=== PATIENT | male | born 1965 | race Hispanic/Latino ===

== ENCOUNTER 2020-06-17 17:20 | Emergency (ER) | payer OTHER ==
[2020-06-17 18:39] LABS: Absolute Lymphocytes (CBC) 0.8 K/uL (0.7-4.9); Basophils % 0.2 % (0-1.3); Hematocrit 35.3 % (39.6-49.0); Lymphocytes % 3.2 % (15.3-44.8); RBC Red Blood Cell Count 3.99 M/uL (4.33-5.43)
[2020-06-17 18:40] LABS: Protime INR 1.43
--- NOTE | 2020-06-17 18:56 | RAD REPORT ---
EXAM DESCRIPTION: RAD - Chest Single View - 06/17/2020 6:43 pm CLINICAL HISTORY: ABDOMINAL DISTENTION Chest pain. COMPARISON: Chest Single View dated 11/29/2017; Chest Single View dated 09/09/2017; Chest Single View dated 03/07/2017; Chest Single View dated 01/19/2017 FINDINGS: Portable technique limits examination quality. Mild to moderate bilateral pulmonary opacities are noted which may represent pneumonia or pulmonary e abraham. The heart is normal in size. No displaced fractures.
[2020-06-17 18:59] LABS: Blood Morphology Comment NOT SEEN (NOT SEEN); Platelet Estimate DECR; White Blood Cell Scan OK (OK)
[2020-06-17] MEDS ORDERED: NA CHLORIDE 0.9% 1,000 ML ONE (19:04)
[2020-06-17] MEDS ORDERED: NA CHLORIDE 0.9% 500 ML ONE (19:05)
--- NOTE | 2020-06-17 19:11 | ER ---
Nurse's Notes [facility] Name: Carson Hoff Age: 55 yrs Sex: Male : 1965 Arrival Date: 06/17/2020 Time: 17:20 Bed 15 Private MD: Diagnosis: Altered mental status, unspecified;Sepsis, unspecified organism;Unspecified cirrhosis of liver;Encephalopathy, unspecified-hepatic encepholapathy;Pneumonia due to other specified bacteria;Acute pancreatitis;Ascites-large liver mass7 cm x 7 cm;Cholelithiasis;Cholecystitis;Acute kidney failure;Hypokalemia Presentation: 06/17 17:21 Chief complaint: Patient states: Pain all over x 4 months. Ebola Screen: Patient denies ss exposure to infectious person. Patient denies travel to an Ebola-affected area in the 21 days before illness onset. Initial Sepsis Screen: Does the patient have a suspected source of infection? No. Patient's initial sepsis screen is negative. Risk Assessment: Do you want to hurt yourself or someone else? Patient reports no desire to harm self or others. Onset of symptoms is unknown. 17:21 Method Of Arrival: EMS: [facility] ss 17:21 Acuity: KHRIS 2 ss 17:21 Note Family told EMS that patient has not been acting himself all day. ss 17:25 Care prior to arrival: Glucose check: 201. ss 23:21 Coronavirus screen: Client denies travel out of the [place] in the last 14 days. At this ll2 time, the client does not indicate any symptoms associated with coronavirus-19. Initial Sepsis Screen: Does the patient meet any 2 criteria? No. Patient's initial sepsis screen is negative. Triage Assessment: 23:17 General: Appears uncomfortable, Behavior is agitated, restless. ll2 Historical: - Allergies: 17:25 No Known Allergies; ss - PMHx: 17:25 bells palsy; Bipolar disorder; Cirrhosis; Diabetes - IDDM; ENCEPHALOPATHY; Erectile ss Dysfunction; esopahgeal varices; GERD; HEP C; HTN; neuropathy; - PSHx: 17:25 abd sx; ss - Immunization history:: Adult Immunizations unknown. - Social history:: Smoking status: unknown. Screenin:47 Abuse screen: Denies threats or abuse. Nutritional screening: No deficits noted. ll2 Tuberculosis screening: No symptoms or risk factors identified. Fall Risk Secondary diagnosis (15 points) altered mental status. IV access (20 points). Mental Status- Overestimates/Forgets Limitations (15 pts.). Total Pinto Fall Scale indicates High Risk Score (45 or more points). Fall prevention measures have been instituted. Side Rails Up X 2 Placed Close to Nursing Station 1:1 Attendant Assigned. Assessment: 18:15 Reassessment: PT REPEATEDLY ATTEMPTING TO CLIMB OUT OF BED, NOT RESPONDING TO VERBAL bp REDIRECTION. PT AOx1, NOT EXERCISING SAFETY AWARENESS. RESTRAINTS PLACED FOR PT SAFETY, PER MD. 21:48 Pain: Unable to use pain scale. Patient is disoriented. ll2 22:50 Reassessment: report given to Srinivasa Emery RN. ll2 Vital Signs: 17:21 BP 137 / 69; Pulse 98; Resp 30; Temp 98.2(TE); Pulse Ox 95% on R/A; Pain 10/10; ss 17:45 BP 142 / 73; Pulse 97; Resp 15; Pulse Ox 99% on R/A; ll2 18:45 BP 111 / 74; Pulse 91; Resp 18; Pulse Ox 98% on R/A; ll2 19:30 BP 131 / 70; Pulse 92; Resp 17; Pulse Ox 99% on R/A; ll2 21:00 BP 110 / 84; Pulse 96; Resp 23; Pulse Ox 97% on R/A; ll2 22:46 BP 143 / 79; Pulse 90; Resp 17 S; Pulse Ox 99% on R/A; jd3 ED Course: 17:20 Patient arrived in ED. ss 17:24 Triage completed. ss 17:25 Arm band placed on right wrist. ss 17:47 Chung Rodriguez MD is Attending Physician. clarence 18:27 Inserted saline lock: 20 gauge in right antecubital area, using aseptic technique. 4 Blood collected. 18:37 Radiology exam delayed due to Per nurse, pt unable to come to CT due to needing vm2 sedation. 18:43 XRAY Chest (1 view) In Process Unspecified. EDMS 18:45 Joon Hwang RN is Primary Nurse. jd3 19:09 COVID-19 Sent. 4 19:49 Abdomen 1 View (KUB) XRAY: for ng placement In Process Unspecified. EDMS 19:50 CT Traumagram (Head C Spine CAP wo con) In Process Unspecified. EDMS 19:56 patients Gisela Hoff [id number]. mw2 20:15 IV was discontinued by the patient. jd3 20:17 Inserted saline lock: 20 gauge in right antecubital area, using aseptic technique. jd3 20:29 initiated a transfer with Abdelrahman Alexander from [facility]. mw2 21:37 Urine Culture Sent. ll2 22:06 administrative approval given by Abdelrahman Alexander/ patient has been accepted to [address] to the [facility] room 8 A 807/ Dr. Garcia has accepted the patient in transfer/ report to be called [phone]. 23:18 Patient has correct armband on for positive identification. Placed in gown. Bed in low ll2 position. Side rails up X2. Report given to report given to [facility]. night monitor on. Pulse ox on. NIBP on. 23:21 No provider procedures requiring assistance completed. Patient transferred, IV remains ll2 in place. 06/18 00:00 Primary Nurse role handed off by Joon Hwang, JORDIN tl1 Restraints: 06/17 18:15 Non-Violent Restraint: Order obtained. Initiated on June 17, 2020 at 18:15 Unable bp to provide Restraint education. PT DISORIENTED, EXPRESSES NO COMPREHENSION. Actions/Behavior observed: Confused/disoriented, has difficulty remembering/follow instructions, has impaired decision making, repeated attempts to get up from bed/chair w/o assistance, has decreased level of consciousness, unable to follow instructions, Less restrictive alternatives attempted: decrease environmental stimuli, placed near Nurse station, reoriented to location, repositioned, verbal de-escalation performed, Alternative interventions: Ineffective. Clinical justification for use: patient safety, Mental status: agitated/restless, confused, Cognition: poor judgement, poor safety awareness, impulsive, poor attention/concentration, unable to follow commands, Circulation: Within defined parameters (based on Cardiovascular assessment) Skin integrity: Within defined parameters (based on Integumentary assessment) Signs of injury related to restraint: No injuries noted. Range of Motion (ROM): performed. Elimination/Hygiene: Patient declined. Restraint status: Soft wrist restraint (Left) Started. Criteria to discontinue Restraint not met. Restraint continued. Administered Medications: 18:45 Not Given (Duplicate Order): Rocephin - (cefTRIAXone) 1 grams IVPB once over 30 mins; clarence (mix in 50 mL NS) 19:15 Drug: NS 0.9% 500 ml Route: IV; Rate: bolus; Site: right antecubital; ll2 22:44 Follow up: Response: No adverse reaction; IV Status: Completed infusion ll2 19:15 Drug: NS 0.9% 1000 ml Route: IV; Rate: 125 ml/hr; Site: right antecubital; ll2 20:30 Drug: Cefepime 2 grams Route: IVPB; Rate: 200 ml/hr; Infused Over: 30 mins; Site: right jd3 antecubital; 21:37 Follow up: IV Status: Completed infusion ll2 21:37 Follow up: Response: No adverse reaction ll2 20:53 Drug: Lactulose 60 grams Volume: 45 ml; Route: PO; jd3 21:37 Follow up: Response: No adverse reaction ll2 22:44 Follow up: Response: No adverse reaction ll2 20:59 Drug: NS 0.9% 1000 ml Route: IV; Rate: 1 bolus; Site: right antecubital; ll2 22:44 Follow up: IV Status: Infusion continued upon transfer jd3 20:59 Drug: NS 0.9% 1000 ml Route: IV; Rate: 1 bolus; Site: right antecubital; ll2 22:44 Follow up: Response: No adverse reaction; IV Status: Completed infusion ll2 21:06 Drug: vancoMYCIN 1 grams Route: IVPB; Infused Over: 2 hrs; Site: right antecubital; ll2 22:51 Follow up: Response: No adverse reaction; IV Status: Completed infusion ll2 Outcome: 19:11 ER care complete, transfer ordered by MD. lima 23:21 Transferred by ground EMS to [facility], Transfer form ll2 completed. X-rays sent w/ patient. 23:21 Transferred 23:21 Condition: stable 23:21 Instructed on the need for transfer. 23:23 Patient left the ED. ll2 06/18 00:02 Patient left the ED. tl1 Addendum: 06/19/2020 14:10 Addendum: COVID-19 Result: Negative result given to RN to notify pt. Contacted by: s v Leslie V. RN. Notified pt of negative COVID 19 swab results. Pt advised that even with a negative test result they should remain in isolation until symptom free for 3 days without medication. Pt also advised to return to the ED for worsening symptoms. Other: Called [facility], spoke with Radha BRENNER who is primary nurse and informed of result. Result faxed to them as well. Signatures: Dispatcher [employer] Leslie Pacheco RN RN sv Anderson, Corey, MD MD cha Smirch, Shelby, RN RN ss Ayana Og RN RN 1 Cristina Varghese [facility] Joon Hwang RN RN jd3 Forrest Osborne RN RN David Montoya 2 Dl Mandel [facility] Mavis Griffith RN RN ll2 Corrections: (The following items were deleted from the chart) 06/17 17:50 17:21 BP 137 / 69; Pulse 98bpm; Resp 20bpm; Pulse Ox 95% RA; Temp 98.2F Temporal; Pain ss 07/04; ss
--- NOTE | 2020-06-17 19:11 | EDPHYS ---
Physician Documentation [facility] Name: Carson Hoff Age: 55 yrs Sex: Male : 1965 Arrival Date: 06/17/2020 Time: 17:20 Bed 15 Private MD: ED Physician Chung Rodriguez HPI: 06/17 17:59 This 55 yrs old Male presents to ER via EMS with complaints of Pain All Over. clarence 17:59 ams, pain all over, altered per family. Onset: The symptoms/episode began/occurred 1 clarence week(s) ago. Severity of symptoms: At their worst the symptoms were mild moderate in the emergency department the symptoms are unchanged. It is unknown whether or not the patient has had similar symptoms in the past. Historical: - Allergies: 17:25 No Known Allergies; ss - PMHx: 17:25 bells palsy; Bipolar disorder; Cirrhosis; Diabetes - IDDM; ENCEPHALOPATHY; Erectile ss Dysfunction; esopahgeal varices; GERD; HEP C; HTN; neuropathy; - PSHx: 17:25 abd sx; ss - Immunization history:: Adult Immunizations unknown. - Social history:: Smoking status: unknown. ROS: 18:01 Constitutional: Negative for fever, chills, and weight loss, Eyes: Negative for injury, clarence pain, redness, and discharge, ENT: Negative for injury, pain, and discharge, Neck: Negative for injury, pain, and swelling, Cardiovascular: Negative for chest pain, palpitations, and edema, Respiratory: Negative for shortness of breath, cough, wheezing, and pleuritic chest pain, Back: Negative for injury and pain, : Negative for injury, bleeding, discharge, and swelling, MS/Extremity: Negative for injury and deformity, Skin: Negative for injury, rash, and discoloration, Psych: Negative for depression, anxiety, suicide ideation, homicidal ideation, and hallucinations, Allergy/Immunology: Negative for hives, rash, and allergies, Endocrine: Negative for neck swelling, polydipsia, polyuria, polyphagia, and marked weight changes, Hematologic/Lymphatic: Negative for swollen nodes, abnormal bleeding, and unusual bruising. 18:01 Abdomen/GI: Positive for abdominal cramps, abdominal distension. 18:01 Neuro: Positive for altered mental status, weakness. Exam: 18:04 Constitutional: This is a well developed, well nourished patient who is awake, alert, clarence and in no acute distress. Head/Face: Normocephalic, atraumatic. Eyes: Pupils equal round and reactive to light, extra-ocular motions intact. Lids and lashes normal. Conjunctiva and sclera are non-icteric and not injected. Cornea within normal limits. Periorbital areas with no swelling, redness, or edema. ENT: Nares patent. No nasal discharge, no septal abnormalities noted. Tympanic membranes are normal and external auditory canals are clear. Oropharynx with no redness, swelling, or masses, exudates, or evidence of obstruction, uvula midline. Mucous membranes moist. Neck: Trachea midline, no thyromegaly or masses palpated, and no cervical lymphadenopathy. Supple, full range of motion without nuchal rigidity, or vertebral point tenderness. No Meningismus. Chest/axilla: Normal chest wall appearance and motion. Nontender with no deformity. No lesions are appreciated. Cardiovascular: Regular rate and rhythm with a normal S1 and S2. No gallops, murmurs, or rubs. Normal PMI, no JVD. No pulse deficits. Respiratory: Lungs have equal breath sounds bilaterally, clear to auscultation and percussion. No rales, rhonchi or wheezes noted. No increased work of breathing, no retractions or nasal flaring. Back: No spinal tenderness. No costovertebral tenderness. Full range of motion. Male : Normal genitalia with no discharge or lesions. Skin: Warm, dry with normal turgor. Normal color with no rashes, no lesions, and no evidence of cellulitis. MS/ Extremity: Pulses equal, no cyanosis. Neurovascular intact. Full, normal range of motion. Psych: Awake, alert, with orientation to person, place and time. Behavior, mood, and affect are within normal limits. 18:04 Respiratory: the patient does not display signs of respiratory distress, Respirations: normal, Breath sounds: are clear throughout. 18:04 Abdomen/GI: Inspection: distension, Bowel sounds: normal, Palpation: mild abdominal tenderness, Liver: is enlarged, Hernia: not appreciated. Vital Signs: 17:21 BP 137 / 69; Pulse 98; Resp 30; Temp 98.2(TE); Pulse Ox 95% on R/A; Pain 10/10; ss 17:45 BP 142 / 73; Pulse 97; Resp 15; Pulse Ox 99% on R/A; ll2 18:45 BP 111 / 74; Pulse 91; Resp 18; Pulse Ox 98% on R/A; ll2 19:30 BP 131 / 70; Pulse 92; Resp 17; Pulse Ox 99% on R/A; ll2 21:00 BP 110 / 84; Pulse 96; Resp 23; Pulse Ox 97% on R/A; ll2 22:46 BP 143 / 79; Pulse 90; Resp 17 S; Pulse Ox 99% on R/A; jd3 MDM: 17:47 Patient medically screened. clarence 18:05 Differential Diagnosis altered mental status, sepsis. Differential Diagnosis: CVA, clarence alcohol intoxication, hypoglycemia, intracranial bleed, overdose, pneumonia, sepsis. Differential diagnosis: appendicitis, bowel obstruction, cholecystitis, Cholelithiasis, diverticulitis, Mesenteric ischemia or infarction, pancreatitis, Perf. Duodenal Ulcer, Perf. Gastric Ulcer, Peritonitis, Pyelonephritis, Ureterolithiasis, urinary tract infection. Data reviewed: vital signs, nurses notes, EMS record, penitentiary records, EKG, radiologic studies, CT scan, plain films. Data interpreted: construction rep: rate is 98 beats/min, rhythm is regular. Test interpretation: by ED physician or midlevel provider: ECG, plain radiologic studies. Counseling: I had a detailed discussion with the patient and/or guardian regarding: the historical points, exam findings, and any diagnostic results supporting the discharge/admit diagnosis, the presence of at least one elevated blood pressure reading (>120/80) during this emergency department visit, lab results, radiology results. 21:21 ED course: no icu beds, no gl. no critical care, pt has been to [facility] via [facility], DR SHIRLENE lima KIND ENOUGH TO HELP. 06/17 17:58 Order name: Basic Metabolic Panel; Complete Time: 19:21 [facility] 06/17 17:58 Order name: CBC with Diff; Complete Time: 19: [facility] 06/17 17:58 Order name: LFT's; Complete Time: 19:21 [facility] 06/17 17:58 Order name: Magnesium; Complete Time: 19:21 [facility] 06/17 17:58 Order name: NT PRO-BNP; Complete Time: 19:21 [facility] 06/17 17:58 Order name: PT-INR; Complete Time: 19:05 [facility] 06/17 17:58 Order name: Troponin (emerg Dept Use Only); Complete Time: 19:21 [facility] 06/17 17:58 Order name: Lipase; Complete Time: 19:21 [facility] 06/17 17:58 Order name: AMMONIA; Complete Time: 19:05 [facility] 06/17 17:58 Order name: Urine Culture [facility] 06/17 18:01 Order name: UDS 06/17 18:01 Order name: Asprin; Complete Time: 19:05 [facility] 06/17 18:01 Order name: Tylenol Level; Complete Time: 19:05 [facility] 06/17 18:01 Order name: Alcohol Level; Complete Time: 19:05 [facility] 06/17 17:58 Order name: XRAY Chest (1 view); Complete Time: 19:05 [facility] 06/17 18:07 Order name: Blood Culture Adult (2) [facility] 06/17 18:46 Order name: COVID-19 [facility] 06/17 19:00 Order name: CBC Smear Scan; Complete Time: 19:05 [facility] 06/17 19:08 Order name: Abdomen 1 View (KUB) XRAY: for ng placement; Complete Time: 20:11 [facility] 06/17 19:21 Order name: ABG; Complete Time: 21:19 [facility] 06/17 19:24 Order name: CT Traumagram (Head C Spine CAP wo con); Complete Time: 20:23 [facility] 06/17 17:58 Order name: EKG; Complete Time: 17:59 [facility] 06/17 17:58 Order name: Cardiac monitoring; Complete Time: 18:45 [facility] 06/17 17:58 Order name: EKG - Nurse/Tech; Complete Time: 18:45 [facility] 06/17 17:58 Order name: IV Saline Lock; Complete Time: 18:46 [facility] 06/17 17:58 Order name: Labs collected and sent; Complete Time: 18:46 [facility] 06/17 17:58 Order name: O2 Per Protocol; Complete Time: 19:14 [facility] 06/17 17:58 Order name: O2 Sat Monitoring; Complete Time: 19:14 [facility] 06/17 17:58 Order name: Urine Dipstick-Ancillary (obtain specimen); Complete Time: 22:25 [facility] 06/17 18:44 Order name: Restraint:Non-Violent; Complete Time: 20:53 06/17 19:23 Order name: Moya; Complete Time: 20:52 clarence Administered Medications: 18:45 Not Given (Duplicate Order): Rocephin - (cefTRIAXone) 1 grams IVPB once over 30 mins; clarence (mix in 50 mL NS) 19:15 Drug: NS 0.9% 500 ml Route: IV; Rate: bolus; Site: right antecubital; ll2 22:44 Follow up: Response: No adverse reaction; IV Status: Completed infusion ll2 19:15 Drug: NS 0.9% 1000 ml Route: IV; Rate: 125 ml/hr; Site: right antecubital; ll2 20:30 Drug: Cefepime 2 grams Route: IVPB; Rate: 200 ml/hr; Infused Over: 30 mins; Site: right jd3 antecubital; 21:37 Follow up: IV Status: Completed infusion ll2 21:37 Follow up: Response: No adverse reaction ll2 20:53 Drug: Lactulose 60 grams Volume: 45 ml; Route: PO; jd3 21:37 Follow up: Response: No adverse reaction ll2 22:44 Follow up: Response: No adverse reaction ll2 20:59 Drug: NS 0.9% 1000 ml Route: IV; Rate: 1 bolus; Site: right antecubital; ll2 22:44 Follow up: IV Status: Infusion continued upon transfer jd3 20:59 Drug: NS 0.9% 1000 ml Route: IV; Rate: 1 bolus; Site: right antecubital; ll2 22:44 Follow up: Response: No adverse reaction; IV Status: Completed infusion ll2 21:06 Drug: vancoMYCIN 1 grams Route: IVPB; Infused Over: 2 hrs; Site: right antecubital; ll2 22:51 Follow up: Response: No adverse reaction; IV Status: Completed infusion ll2 Disposition: 06/17/20 19:11 Transfer ordered to [facility]. Diagnosis are Altered mental status, unspecified, Sepsis, unspecified organism, Unspecified cirrhosis of liver, Encephalopathy, unspecified - hepatic encepholapathy, Pneumonia due to other specified bacteria, Acute pancreatitis, Ascites - large liver mass7 cm x 7 cm, Cholelithiasis, Cholecystitis, Acute kidney failure, Hypokalemia. - Reason for transfer: Higher level of care. - Accepting physician is to [facility], . - Condition is Fair. - Problem is new. - Symptoms have improved. Signatures: Dispatcher [employer] EDMS Chung Rodriguez MD MD cha Smirch, Shelby, RN RN ss Ayana Og RN RN tl1 Joon Hwang RN RN jd3 Forrest Osborne, JORDIN RN bp Mavis Griffith, RN RN ll2 Corrections: (The following items were deleted from the chart) 19:11 19:11 06/17/2020 19:11 Transfer ordered to [facility]. Diagnosis is Altered mental clarence status, unspecified; Sepsis, unspecified organism; Unspecified cirrhosis of liver; Encephalopathy, unspecified - hepatic encepholapathy. Reason for transfer: Higher level of care. Accepting physician is to [facility]. Condition is Fair. Problem is new. Symptoms have improved. clarence 19:29 17:59 Head C Spine CAP W Con+CT.RAD.BRZ ordered. [facility] 20:28 19:11 06/17/2020 19:11 Transfer ordered to [facility]. Diagnosis is Altered mental clarence status, unspecified; Sepsis, unspecified organism; Unspecified cirrhosis of liver; Encephalopathy, unspecified - hepatic encepholapathy; Pneumonia due to other specified bacteria. Reason for transfer: Higher level of care. Accepting physician is to [facility]. Condition is Fair. Problem is new. Symptoms have improved. clarence 20:32 20:28 06/17/2020 19:11 Transfer ordered to [facility]. Diagnosis is Altered mental clarence status, unspecified; Sepsis, unspecified organism; Unspecified cirrhosis of liver; Encephalopathy, unspecified - hepatic encepholapathy; Pneumonia due to other specified bacteria. Reason for transfer: Higher level of care. Accepting physician is to [facility], . Condition is Fair. Problem is new. Symptoms have improved. clarence 20:52 19:08 NG Tube ordered. clarence jd3 23:23 20:32 06/17/2020 19:11 Transfer ordered to [facility]. Diagnosis is Altered mental ll2 status, unspecified; Sepsis, unspecified organism; Unspecified cirrhosis of liver; Encephalopathy, unspecified - hepatic encepholapathy; Pneumonia due to other specified bacteria; Acute pancreatitis; Ascites - large liver mass7 cm x 7 cm; Cholelithiasis; Cholecystitis; Acute kidney failure; Hypokalemia. Reason for transfer: Higher level of care. Accepting physician is to [facility], . Condition is Fair. Problem is new. Symptoms have improved. [facility] 06/18 00:02 06/17 23:23 06/17/2020 19:11 Transfer ordered to [facility]. Diagnosis is Altered tl1 mental status, unspecified; Sepsis, unspecified organism; Unspecified cirrhosis of liver; Encephalopathy, unspecified - hepatic encepholapathy; Pneumonia due to other specified bacteria; Acute pancreatitis; Ascites - large liver mass7 cm x 7 cm; Cholelithiasis; Cholecystitis; Acute kidney failure; Hypokalemia. Reason for transfer: Higher level of care. Accepting physician is to [facility], . Condition is Fair. Problem is new. Symptoms have improved. ll2
[2020-06-17 19:20] LABS: Bilirubin Direct 0.7 mg/dL (0-0.2); Bilirubin Total 1.2 mg/dL (0.2-1.0); Protein, Total 7.9 g/dL (6.4-8.2); Troponin (Emerg Dept Use Only) 0.03 ng/mL (0.0-0.045)
[2020-06-17] MEDS ORDERED: LACTULOSE 20 GM/30 ML UCUP ONE (19:38)
[2020-06-17] MEDS ORDERED: CEFEPIME 2 GM VIAL ONE (19:40)
[2020-06-17] MEDS ORDERED: NA CHLORIDE 0.9% 100 ML IV ONE (19:41)
[2020-06-17] MEDS ORDERED: CEFTRIAXONE 1000 MG/VIAL ONE (19:41)
[2020-06-17] MEDS ORDERED: VANCOMYCIN 1 GM/VIAL ONE ×2 (19:41→21:12)
[2020-06-17] MEDS ORDERED: NA CHLORIDE 0.9% 50 ML IV ONE (19:41)
[2020-06-17] MEDS ORDERED: LIDOCAINE VISCOUS 2% SOLN 15 ML UDC ONE (19:47)
--- NOTE | 2020-06-17 20:02 | RAD REPORT ---
EXAM DESCRIPTION: RAD - Abdomen 1 View (KUB) - 06/17/2020 7:49 pm CLINICAL HISTORY: ABD PAIN Pain COMPARISON: No comparisons FINDINGS: The bowel gas pattern is non-obstructive. No evidence of free air or pneumatosis. No suspi cious calcifications. No significant bony findings. IMPRESSION: Negative examination.
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
[2020-06-17 20:49] LABS: Arterial Blood Carboxyhemoglob 0.8 % (0-1.5); Blood O2 Saturation 98.8 % (92-98.5)
[2020-06-17] MEDS ORDERED: NA CHLORIDE 0.9% 2,000 ML ONE (21:06)
[2020-06-17] MEDS ORDERED: NA CHLORIDE 0.9% 250 ML ONE (21:12)
[2020-06-17 21:53] LABS: Barbiturates NEGATIVE (NEGATIVE); Benzodiazepines NEGATIVE (NEGATIVE); Cocaine NEGATIVE (NEGATIVE); METHAMPHETAM NEGATIVE (NEGATIVE); Methadone NEGATIVE (NEGATIVE); Opiates NEGATIVE (NEGATIVE); Phencyclidine NEGATIVE (NEGATIVE); THC Cannibis NEGATIVE (NEGATIVE)
[2020-06-17 23:31] VITALS: TEMP 98.2
[2020-06-17 23:41] VITALS: BP 143/79; O2SAT 99
--- NOTE | 2020-06-18 08:44 | EKG ---
Test Date: 2020-06-17 Test Time: 18:39:15 Call Out Clerk: SHANON MEASUREMENT RESULTS: Intervals: Rate: 92 WV: 146 QRSD: 88 QT: 376 QTc: 464 [place]: P: 62 WV: 146 QRS: 96 T: 31 INTERPRETIVE STATEMENTS: Normal sinus rhythm Rightward axis ST & T wave abnormality, consider anterior ischemia Prolonged QT Abnormal ECG Compared to ECG 09/09/2017 22:35:58 ST (T wave) deviation now present Possible ischemia now present Prolonged QT interval now present Electronically Signed On 06-18-20 08:43:10 CDT by John Shannon
== END 2020-06-18 00:02 | disposition short-term general hospital (02) ==
LOC: ER 17:20
DX: A41.9 Sepsis, unspecified organism (principal); K74.60 Unspecified cirrhosis of liver; K72.90 Hepatic failure, unspecified without coma; J15.8 Pneumonia due to other specified bacteria; K85.90 Acute pancreatitis without necrosis or infection, unspecified; R18.8 Other ascites; K80.10 Calculus of gallbladder with chronic cholecystitis without obstruction; N17.9 Acute kidney failure, unspecified; E87.6 Hypokalemia; R16.0 Hepatomegaly, not elsewhere classified; I10 Essential (primary) hypertension; Z20.828 Contact with and (suspected) exposure to other viral communicable diseases
CPT/HCPCS: 96365; 96361; 93005; 87040 ×2; 87088; 85025; 87086; 80048; 36415; 80320; 82140; 83735; 80329 ×2; 85610; 80076; 80307 ×8; 84484; 83690; 83880; 70450; 71250; 72125; 74018; 71045; 82805; 99285; U0002; J3370 ×2; J0692; J7050; J7040; J7030 ×2